=== PATIENT | male | born 1990 | race Caucasian/White ===

== ENCOUNTER 2018-05-17 16:45 | Emergency (ER) | payer SELFPAY ==
[~2018-05-17] VITALS: Ht 157.5 cm; Wt 78.0 kg
[2018-05-17 17:33] VITALS: BP_SYST 119
[2018-05-17 17:50] LABS: BILIRUBIN,URINE NEGATIVE (NEGATIVE); BLOOD, URINE 1+ (NEGATIVE); CLARITY/URINE CLEAR (CLEAR); COLOR,URINE YELLOW (YELLOW); GLUCOSE,URINE NEGATIVE (NEGATIVE); KETONES,URINE NEGATIVE (NEGATIVE); LEUKOCYTE ESTERASE ,URINE NEGATIVE (NEGATIVE); NITRITE, URINE NEGATIVE (NEGATIVE); PH,URINE 5.5 (5.0-8.0); PROTEIN URINE NEGATIVE (NEGATIVE); UROBILINOGEN,URINE 0.2 (0.2-1.0)
--- NOTE | 2018-05-17 17:52 | NUR ---
Patient triaged and placed in waiting room. VSS and patient appears in no acute distress at this time. Accompanied by family , awaiting available bed, and MD notified of need for MSE,orders placed to r/o appendicitis. Dr Canales notified.
[2018-05-17 17:58] LABS: BACTERIA,URINE None Seen /HPF (None Seen); MUCUS,URINE None Seen /LPF (None Seen); RBC,URINE NONE SEEN /HPF (0-3); WBC,URINE NONE SEEN /HPF (0-3)
[2018-05-17 18:30] LABS: CREATININE 0.92 mg/dL (0.55-1.30); POTASSIUM 3.9 mmol/L (3.5-5.1)
[2018-05-17 18:32] LABS: INR 1.1 (0.80-1.20); PROTHROMBIN TIME 10.8 SECS (9.5-12.5)
[2018-05-17 18:35] LABS: ALBUMIN 4.2 g/dL (3.4-4.8); TOTAL BILIRUBIN 0.9 mg/dL (0.0-1.0); WHITE BLOOD COUNT (AUTO) 8.7 K/uL (4.8-10.8)
[2018-05-17 18:36] LABS: BASOPHILS % (AUTO) 0.4 % (0.0-2.0); EOSINOPHILS # (AUTO) 0.1 K/uL (0.0-0.4); EOSINOPHILS % (AUTO) 1.6 % (0.0-4.0); HEMATOCRIT 47.7 % (36-54); HEMOGLOBIN 16.8 g/dL (14.0-18.0); LYMPHOCYTES # (AUTO) 1.6 K/uL (1.0-5.5); MEAN CORPUSCULAR HEMOGLOBIN 28 pg (27-31); MEAN CORPUSCULAR HGB CONC 35 % (32-36); MEAN CORPUSCULAR VOLUME 80 fL (79.0-98.0); MONOCYTES # (AUTO) 0.6 K/uL (0.0-1.0); MONOCYTES % (AUTO) 6.4 % (1.7-9.3); NEUTROPHILS # (AUTO) 6.4 K/uL (1.8-7.7); NEUTROPHILS % (AUTO) 73.6 % (40.0-70.0); PLATELET COUNT (AUTO) 196 K/uL (130-430); RED CELL DISTRIBUTION WIDTH 12.8 % (9.0-15.0)
--- NOTE | 2018-05-17 19:13 | NUR ---
Pt sitng on waiting room, VSS, no N/V or s/s of bleeding noted, report given to Buck ALVAREZ
--- NOTE | 2018-05-17 19:16 | NUR ---
Report given to Buck ALVAREZ
--- NOTE | 2018-05-17 19:44 | NUR ---
Patient to ER bed 6 to gown for evaluation. Side rails up. Report given to KIM Osborn.
--- NOTE | 2018-05-17 19:50 | NUR ---
Pt C/O Rt lower abd pain, nausea, and diarrhea x 6 days. Pt states pain has been getting progressively worse and was unable to sleep last night. Pt denies any chest pain, SOB or any other symptoms at this time. Pain is currently a 3/10. Vitals are stable, will continue to monitor.
--- NOTE | 2018-05-17 20:18 | NUR ---
Pt has left without being seen by ER MD. Pt has been notified on risks and to return to the ER if symptoms worsened.
[2018-05-17 20:19] VITALS: BP_SYST 119
== END 2018-05-17 20:18 | disposition left against medical advice (07) ==
LOC: SED 16:45
DX: R10.30 Lower abdominal pain, unspecified (principal); Z53.21 Procedure and treatment not carried out due to patient leaving prior to being seen by health care provider
CPT/HCPCS: 36415; 80053; 81000-TC; 83605; 85025; 85610-TC; 85730-TC; 87040-TC; 99281; 99284

== ENCOUNTER 2018-05-20 13:33 | Emergency (ER) | payer SELFPAY ==
[~2018-05-20] VITALS: Ht 167.6 cm; Wt 78.0 kg
[2018-05-20 14:11] VITALS: BP_SYST 114
--- NOTE | 2018-05-20 14:16 | NUR ---
Patient triaged and placed in waiting room. VSS and patient appears in no acute distress at this time. Accompanied by SELF, awaiting available bed, and MD notified of need for MSE.
[2018-05-20] MEDS ORDERED: DIATR MEGLU/DIATRIZ SOD 30 ML SOLUTION PO ONE (14:40)
--- NOTE | 2018-05-20 15:08 | NUR ---
Patient to ER bed 03 to gown for evaluation. Side rails up. Report given to Sally ALVAREZ.
--- NOTE | 2018-05-20 15:15 | NUR ---
Patient arrived via POV, AAOx4, ambulatory to steady gait. Patient c/c of RLQ abdominal pain, radiating to right back. Patient states he was seen last week, and had a CT, per report, it stated he needs a CT with contrast. Patient states no changes to bowels, urinary habits, nausea, or vomiting. Patient rates abdominal pain at 6/10, patient states pain decreases upon laying on his right side. Patient denies worsening pain with eating or drinking. Tolerating food well, has been taking ibuprofen for pain relief. Will continue to follow up and monitor.
[2018-05-20 15:21] LABS: CALCIUM 8.8 mg/dL (8.4-11.0); CREATININE 1.14 mg/dL (0.55-1.30); POTASSIUM 3.9 mmol/L (3.5-5.1)
[2018-05-20 15:25] LABS: TOTAL BILIRUBIN 0.9 mg/dL (0.0-1.0)
[2018-05-20 15:37] LABS: HEMATOCRIT 43.1 % (36-54); MEAN CORPUSCULAR HEMOGLOBIN 28 pg (27-31); MEAN CORPUSCULAR HGB CONC 35 % (32-36); MEAN CORPUSCULAR VOLUME 79 fL (79.0-98.0); RED BLOOD CELL COUNT(AUTO) 5.46 MIL/uL (4.2-6.2); RED CELL DISTRIBUTION WIDTH 12.8 % (9.0-15.0); WHITE BLOOD COUNT (AUTO) 8.4 K/uL (4.8-10.8)
[2018-05-20 15:38] LABS: BASOPHILS % (AUTO) 0.3 % (0.0-2.0); EOSINOPHILS # (AUTO) 0.1 K/uL (0.0-0.4); EOSINOPHILS % (AUTO) 1.3 % (0.0-4.0); LYMPHOCYTES # (AUTO) 1.4 K/uL (1.0-5.5); LYMPHOCYTES % (AUTO) 16.5 % (20.5-51.5); MONOCYTES # (AUTO) 0.7 K/uL (0.0-1.0); MONOCYTES % (AUTO) 8.3 % (1.7-9.3); NEUTROPHILS # (AUTO) 6.2 K/uL (1.8-7.7); NEUTROPHILS % (AUTO) 73.6 % (40.0-70.0); PLATELET COUNT (AUTO) 195 K/uL (130-430)
--- NOTE | 2018-05-20 15:45 | NUR ---
ER at bedside examining patient.
[2018-05-20] MEDS ORDERED: KETOROLAC TROMETHAMINE 30 MG VIAL IVP ONE (16:15)
--- NOTE | 2018-05-20 16:35 | NUR ---
Consent signed for CT scan, IV placed 20ga to right AC. Patient premedicated with toradol for pain prior to exam.
[2018-05-20] MEDS ORDERED: IOHEXOL 100 ML IV ONE (16:41)
--- NOTE | 2018-05-20 16:51 | NUR ---
CT completed, and patient returned to room. Patient denies any increased pain, nausea, or vomiting. Patient tolerated procedure well. Will follow up regarding results.
--- NOTE | 2018-05-20 18:23 | NUR ---
Dr. Rodas at bedside, evaluating patient and discussing results.
[2018-05-20 19:24] VITALS: BP_SYST 112
--- NOTE | 2018-05-20 19:24 | NUR ---
1924 - Patient given written and verbal discharge instructions and verbalizes understanding. ER MD discussed with patient the results and treatment provided. Patient in stable condition. ID arm band removed. IV catheter removed intact and dressing applied, no active bleeding. Rx of prednisone, motrin, zofran, norco given. Patient educated on pain management and to follow up with PMD. Opportunity for questions provided and answered. Medication side effect fact sheet provided. Ambulatory w/ steady gait, A&Ox4
== END 2018-05-20 19:24 | disposition home or self-care (01) ==
LOC: SED 13:33
DX: R10.31 Right lower quadrant pain (principal); Z88.0 Allergy status to penicillin
CPT/HCPCS: 36415; 74177; 80053; 83690; 85025; 96374; 99284; J1885; Q9964; Q9967